=== PATIENT | female | born 1960 | race Caucasian/White ===

== ENCOUNTER 2019-04-12 15:12 | Outpatient (CLI) | payer OTHER ==
--- NOTE | 2019-04-12 16:13 | MMO ---
Bilateral MAMMO Bilat Diag [facility]. CLINICAL HISTORY: Patient is 58 years old and is seen for diagnostic exam and palpable abnormality in the right breast. The patient has no family history of breast cancer. The patient has no personal history of cancer. VIEWS: The views performed were: bilateral craniocaudal with tomosynthesis; bilateral mediolateral oblique with tomosynthesis; bilateral mediolateral with tomosynthesis; and bilateral exaggerated craniocaudal. FILMS COMPARED: The present examination has been compared to prior imaging studies performed at [facility] on 07/27/2010, 05/29/2013 and 04/12/2019, and at [facility] on 05/31/2018. This study has been interpreted with the assistance of computer-aided detection. MAMMOGRAM FINDINGS: The breasts are heterogeneously dense, which could obscure a lesion on mammography. There is a solid mass on US at 11:00 not seen on mammo. In the left breast, there are no suspicious masses, calcifications or areas of architectural distortion. IMPRESSION: FINDING IN THE RIGHT BREAST IS SUSPICIOUS. AN ULTRASOUND-GUIDED BREAST BIOPSY IS RECOMMENDED. THE RESULTS OF THIS EXAM WERE SENT TO THE PATIENT. ACR BI-RADS Category 4 - Suspicious abnormality - biopsy should be considered MAMMOGRAPHY NOTE: 1. A negative mammogram report should not delay a biopsy if a dominant of clinically suspicious mass is present. 2. Approximately 10% to 15% of breast cancers are not detected by mammography. 3. Adenosis and dense breasts may obscure an underlying neoplasm. Reported by: LELE FRANK MD Electonically Signed: [id number]
--- NOTE | 2019-04-12 16:17 | ULT ---
RIGHT BREAST ULTRASOUND: 04/12/19 HISTORY: Palpable mass right breast at 11 o'clock position. FINDINGS: Correlation is made with mammogram of same date. Sonographic evaluation of region of palpable concern at the 11 o'clock position 6 cm from the nipple demonstrates a well circumscribed nonshadowing solid mass measuring 2 x 0.5 x 1 cm. IMPRESSION: BI-RADS 4: Suspicious Abnormality - Biopsy Should Be Considered Usually requires biopsy. Ultrasound guided biopsy is recommended. Discussed in person with the patient at 4:10 p.m.
== END 2019-04-12 15:13 | disposition home or self-care (01) ==
LOC: BICMAMMO 15:12
PROVIDERS: ATTEND Obstetrics & Gynecology
DX: N63.10 Unspecified lump in the right breast, unspecified quadrant (principal)
CPT/HCPCS: 77066; G0279

== ENCOUNTER → 2019-04-13 | Day surgery (SDC) | payer OTHER ==
--- NOTE | 2019-04-13 14:03 | MMO ---
Right Breast MAMMO Unilat Diag [facility]. CLINICAL HISTORY: Patient is 58 years old and is seen for diagnostic exam. The patient has no family history of breast cancer. The patient has no personal history of cancer. The patient has a history of right Ultrasound Guided Core Biopsy in April,. VIEWS: The views performed were: right craniocaudal and right mediolateral oblique. FILMS COMPARED: The present examination has been compared to prior imaging studies performed at [facility] on 05/29/2013 and 04/12/2019, and at [facility] on 05/31/2018. This study has been interpreted with the assistance of computer-aided detection. MAMMOGRAM FINDINGS: There is a biopsy clip seen in the upper-outer region of the right breast. The biopsy clip is more medially located than the localization marker seen on the screening mammogram on 04/12 2019, but biopsy clip was placed adjacent to the visualized mass right breast seen on ultrasound. IMPRESSION: BIOPSY CLIP IN THE RIGHT BREAST IS CONFIRMED UTILIZING POST PROCEDURE MAMMOGRAM. THE RESULTS OF THIS EXAM WERE SENT TO THE PATIENT. MAMMOGRAPHY NOTE: 1. A negative mammogram report should not delay a biopsy if a dominant of clinically suspicious mass is present. 2. Approximately 10% to 15% of breast cancers are not detected by mammography. 3. Adenosis and dense breasts may obscure an underlying neoplasm. Reported by: LINDY WELLS MD Electonically Signed: [id number]
--- NOTE | 2019-04-13 14:22 | ULT ---
EXAM: US Breast Bx US Guided Ultrasound-guided right breast biopsy marker clip placement PROVIDED CLINICAL HISTORY: Palpable abnormality right breast. Ultrasound examination on 04/12/2019 demonstrates a hypoechoic mass at the 11:00 position right breast. COMPARISON: Right breast ultrasound on 04/12/2019 TECHNIQUE: The procedure including the risks and complications were explained to the patient, and informed conse nt was obtained. The patient was placed on the sonography table in the supine position. Mass in the right breast at 11:00 position was again localized. The area was meticulously prepped and draped in t he usual sterile fashion. Skin and subcutaneous tissues were infiltrated with buffered 1% lidocaine for local anesthesia at the intended puncture site. Utilizing concurrent real time ultrasound guidanc e, a total of four 14-gauge core needle biopsy specimens were obtained. After biopsies were obtained, a biopsy marker clip was deployed again utilizing ultrasound guidance. Hemostasis was achieved with direct pressure, and a dry sterile dressing was placed. The patient tole rated the procedure well and without immediate complication. Patient was transported to mammography to obtained in a right breast mammogram post biopsy marker clip placement. IMPRESSION: 1. Technically successful ultrasound-guided biopsy of right breast mass. 2. Technically successful biopsy marker clip placement at site of biopsy adjacent to the right breast mass. 3. Postbiopsy mammograms were obtained and compared to prior mammograms on 04/12/2019. Biopsy marker cl ip is located in the upper breast but is located more medial than the palpable marker seen on the CC projection obtained on 04/12/2019. However, the biopsy marker clip was placed adjacent to the sonogr aphically visualized mass.
== END ==
LOC: BICULT 12:45
PROVIDERS: ATTEND Obstetrics & Gynecology
PROC: 0H9T3ZX Drainage of Right Breast, Percutaneous Approach, Diagnostic (ICD-10-PCS; principal; 2019-04-13)
DX: N60.81 Other benign mammary dysplasias of right breast (principal); Z88.1 Allergy status to other antibiotic agents
CPT/HCPCS: 19083; 88305

== ENCOUNTER 2021-02-08 14:35 | Inpatient (IN) | payer SELFPAY ==
[2021-02-08 15:09] LABS: #Lymphocytes 0.4 thou/uL (1.20-3.40); #Monocytes 0.6 thou/uL (0.11-0.59); #Neutrophils 9.4 thou/uL (1.40-6.50); %Basophils 0.1 % (0.0-1.0); %Eosinophils 0.2 % (0.0-10.0); %Lymphocytes 3.4 % (21.0-51.0); %Monocytes 5.3 % (0.0-10.0); Hemoglobin 13.5 g/dL (12.0-16.0); Mean Corpuscular HGB CONC 34.5 g/dL (32.0-36.0); Mean Corpuscular Hemoglobin 35.4 pg (27.0-31.0); Mean Platelet Volume 6.5 fL (7.4-10.4); Platelet Count 297 thou/uL (130-400); RBC Distribution Width 10.9 % (11.5-14.5); Red Blood Cell (RBC) Count 3.82 mill/uL (4.20-5.40); White Blood Cell (WBC) Count 10.4 thou/uL (4.8-10.8)
[2021-02-08 15:20] LABS: INR-International Normal Ratio 1.1; PTT 25.9 sec (22.9-36.1); Prothrombin Time 13.8 sec (12.0-14.7)
[2021-02-08] MEDS ORDERED: Morphine 4 MG/ML VIAL ONE (15:27)
[2021-02-08] MEDS ORDERED: Ondansetron PF 4 MG/2 ML Vial ONE (15:27)
[2021-02-08 15:29] LABS: Acetaminophen Less than 6.0 mcg/mL (10.0-30.0); Alcohol Less than 10 mg/dL (Less than 10); CK (CPK) 256 U/L (29-168); Salicylate Less than 8.0 mg/dL (15.0-30.0)
[2021-02-08 15:31] LABS: ALT (SGPT) 22 U/L (8-55); AST (SGOT) 33 U/L (5-34); Albumin 4.3 g/dL (3.5-5.0); Alkaline Phosphatase 65 U/L (40-110); Anion Gap 12 mmol/L (10-20); BUN (Urea Nitrogen) 11 mg/dL (9.8-20.1); Bilirubin, Total 0.7 mg/dL (0.2-1.2); Calc. Creatinine Clearance 0 mL/min (70-130); Calcium 9.2 mg/dL (7.8-10.44); Carbon Dioxide 25 mmol/L (22-29); Chloride 106 mmol/L (98-107); Globulin 2.4 g/dL (2.4-3.5); Glucose 99 mg/dL (70-105); Lipase 12 U/L (8-78); Magnesium 1.9 mg/dL (1.6-2.6); Potassium 3.6 mmol/L (3.5-5.1); Protein, Total 6.7 g/dL (6.0-8.3); Sodium 139 mmol/L (136-145)
[2021-02-08] MEDS ORDERED: Heparin 10,000 UNITS/ 10 ML VIAL ONE (15:59)
[2021-02-08] MEDS ORDERED: Aspirin Chewable 81 MG TAB ONE (15:59)
[2021-02-08] MEDS ORDERED: Heparin 25,000 units/D5W 500 ML ONE (16:00)
[2021-02-08 16:01] LABS: CKMB 6.6 ng/mL (0-6.6)
[2021-02-08] MEDS ORDERED: levETIRAcetam in NS 1,500 MG in Premix Bag 1 BAG IVPB SCH (16:30)
[2021-02-08] MEDS ORDERED: Ondansetron ODT 4 MG TAB PO PRN (16:40)
[2021-02-08] MEDS ORDERED: Heparin 10,000 UNITS/ 10 ML VIAL SLOW IVP SCH (17:00)
[2021-02-08] MEDS ORDERED: Heparin 25,000 units/D5W 500 ML IVPB SCH (17:00)
[2021-02-08 17:22] LABS: Amphetamine Not Detected (NotDetected); Barbiturates Screen Not Detected (NotDetected); Benzodiazepine Screen Detected (NotDetected); Cocaine Metabolite Screen Not Detected (NotDetected); Methadone Not Detected (NotDetected); Methamphetamine Not Detected (NotDetected); Opiate Screen Detected (NotDetected); Oxycodone Screen Not Detected (NotDetected); Phencyclidine (PCP) Not Detected (NotDetected); THC/Cannabinoid Screen Detected (NotDetected); Tricyclic Screen Detected (NotDetected)
[2021-02-08 17:33] LABS: Bilirubin Negative (Negative); Blood, Urine Negative (Negative); Clarity Turbid (Clear); Glucose, Urine (Dipstick) 200 mg/dL (Negative); Ketone, Urine 40 mg/dL (Negative); Leukocyte Negative Leu/uL (Negative); Mucous/LPF Rare LPF (<2+); Nitrite Negative (Negative); Protein, Urine (Dipstick) 30 mg/dL (Neg-Trace); RBC/HPF 0-3 HPF (0-3); Urobilinogen Normal mg/dL (Less than 2); pH, Urine 5.5 (5.0-9.0)
[2021-02-08 17:36] LABS: Hemoglobin 12.7 g/dL (12.0-16.0); Platelet Count 283 thou/uL (130-400)
[2021-02-08 17:40] LABS: Bacteria/HPF 3+ HPF (None Seen)
[2021-02-08 18:20] LABS: Troponin I 1.079 ng/mL (< 0.028)
[2021-02-08 18:32] LABS: SARS-CoV-2 NAA Rapid Test Not Detected (NotDetected)
[2021-02-08 20:53] VITALS: BMI 20.3
[2021-02-08] MEDS: Acetaminophen 325 MG TAB PO PRN (21:45)
[2021-02-08] MEDS: Famotidine 20 MG TAB PO SCH (21:46)
[2021-02-08 22:17] LABS: Troponin I 1.289 ng/mL (< 0.028)
[2021-02-08] MEDS ORDERED: Metoclopramide HCl 10 MG/2 ML VIAL IVP SCH (23:15)
[2021-02-08] MEDS ORDERED: Estradiol 1 MG TAB PO SCH (23:59)
[2021-02-08] MEDS ORDERED: Progesterone,Micronized 100 MG CAP PO SCH (23:59)
[2021-02-09 01:38] LABS: Troponin I 1.303 ng/mL (< 0.028)
[2021-02-09] MEDS: Acetaminophen 325 MG TAB PO PRN ×2 (04:03→08:16)
[2021-02-09] MEDS: Levothyroxine 150 MCG TAB PO SCH (05:51)
[2021-02-09] MEDS ORDERED: Aspirin/APAP/Caffeine Tab (Excedrin Migraine) PO PRN (08:09)
[2021-02-09] MEDS ORDERED: Lorazepam 0.5 MG TAB PO SCH (08:15)
[2021-02-09] MEDS: FLUoxetine HCl 20 MG CAP PO SCH (08:16)
[2021-02-09] MEDS ORDERED: Progesterone,Micronized 100 MG CAP PO SCH ×2 (09:00→21:00)
[2021-02-09] MEDS ORDERED: Estradiol 1 MG TAB PO SCH ×2 (09:00→21:00)
[2021-02-09] MEDS ORDERED: FLU VACC QS2021-22(6MOS UP)/PF 60 MCG/0.5 ML SYRINGE IM ONE (09:00)
[2021-02-09] MEDS: Famotidine 20 MG TAB PO SCH ×2 (09:14→21:11)
[2021-02-09 10:05] LABS: Anion Gap 13 mmol/L (10-20); BUN (Urea Nitrogen) 6 mg/dL (9.8-20.1); Calc. Creatinine Clearance 76 mL/min (70-130); Calcium 8.6 mg/dL (7.8-10.44); Carbon Dioxide 24 mmol/L (22-29); Chloride 107 mmol/L (98-107); Glucose 97 mg/dL (70-105); Potassium 3.5 mmol/L (3.5-5.1); Sodium 140 mmol/L (136-145)
[2021-02-09 10:06] LABS: Critical Call Chem Troponin I RESULT DECREASING
[2021-02-09 10:40] LABS: CKMB 13.3 ng/mL (0-6.6)
[2021-02-09] MEDS ORDERED: levETIRAcetam in NS 1,000 MG in Premix Bag 1 BAG IVPB SCH (12:45)
[2021-02-09] MEDS ORDERED: Lorazepam 2 MG/ML VIAL SLOW IVP PRN (12:46)
[2021-02-09] MEDS: Metoclopramide HCl 10 MG/2 ML VIAL IVP PRN ×2 (16:29→21:18)
[2021-02-09] MEDS: diphenhydrAMINE 25 MG in Sodium Chloride 0.9% 50 ML IVPB PRN ×2 (16:29→21:27)
[2021-02-09] MEDS ORDERED: levETIRAcetam 500 MG TAB PO SCH (21:00)
[2021-02-09] MEDS: levETIRAcetam 500 mg/5 ml Oral Solution PO SCH (21:27)
[2021-02-10 05:53] LABS: Cardiac Risk 2.6 (Less than 4.5)
[2021-02-10] MEDS: Levothyroxine 150 MCG TAB PO SCH (06:11)
[2021-02-10] MEDS: FLUoxetine HCl 20 MG CAP PO SCH (11:27)
[2021-02-10] MEDS ORDERED: Lorazepam 0.5 MG TAB PO SCH (11:45)
[2021-02-10] MEDS ORDERED: ADENOSINE 60 MG/20 ML VIAL ONE (12:18)
[2021-02-10] MEDS: levETIRAcetam 500 mg/5 ml Oral Solution PO SCH ×2 (13:05→20:21)
[2021-02-10] MEDS: Famotidine 20 MG TAB PO SCH ×2 (17:21→20:25)
[2021-02-10 17:36] LABS: Hemoglobin 13.2 g/dL (12.0-16.0); Platelet Count 271 thou/uL (130-400)
[2021-02-10] MEDS ORDERED: Enoxaparin Sodium 40 MG/0.4 ML SYRINGE SC SCH (21:00)
[2021-02-11] MEDS: Levothyroxine 150 MCG TAB PO SCH (05:27)
[2021-02-11] MEDS: levETIRAcetam 500 mg/5 ml Oral Solution PO SCH (09:56)
[2021-02-11] MEDS: Famotidine 20 MG TAB PO SCH ×2 (09:57→10:02)
[2021-02-11] MEDS: FLUoxetine HCl 20 MG CAP PO SCH (09:57)
[2021-02-11 14:46] VITALS: BP 121/57; TEMP 98.4
== END 2021-02-11 13:25 | disposition home or self-care (01) | DRG 100 ==
LOC: ERS 14:35 → 2NO 16:13
PROVIDERS: ADMIT Family Medicine; ATTEND Family Medicine
DX: G40.909 Epilepsy, unspecified, not intractable, without status epilepticus (principal); I21.A1 Myocardial infarction type 2; Z20.822 Contact with and (suspected) exposure to COVID-19; F41.9 Anxiety disorder, unspecified; F32.A Depression, unspecified; G89.29 Other chronic pain; E03.9 Hypothyroidism, unspecified; G93.89 Other specified disorders of brain; G44.40 Drug-induced headache, not elsewhere classified, not intractable; T39.95XA Adverse effect of unspecified nonopioid analgesic, antipyretic and antirheumatic, initial encounter; Z79.890 Hormone replacement therapy; Z79.899 Other long term (current) drug therapy; Z98.890 Other specified postprocedural states; Z87.74 Personal history of (corrected) congenital malformations of heart and circulatory system
CPT/HCPCS: 36415; 70450; 70551; 71045; 78452; 80048; 80053; 80061; 80306; 80307; 81003; 81015; 82550; 82553; 83690; 83735; 84146; 84439; 84443; 84484; 85014; 85018; 85025; 85049; 85610; 85730; 93005; 93017; 93306; 95712; 95819; 95957; A9500; J0153; J1200; J1642; J1644; J1953; J2270; J2405; J2765; Q0162; U0002

== ENCOUNTER 2024-01-20 19:41 | Emergency (ER) | payer OTHER, SELFPAY ==
[2024-01-20] MEDS ORDERED: Bacitracin 1 PK ONE ×2 (22:12→22:15)
[2024-01-20] MEDS ORDERED: Lidocaine 1% PF 5 ML VIAL ONE (22:19)
== END 2024-01-20 22:52 | disposition home or self-care (01) ==
LOC: ERS 19:41
DX: S61.451A Open bite of right hand, initial encounter (principal); S61.212A Laceration without foreign body of right middle finger without damage to nail, initial encounter; S61.411A Laceration without foreign body of right hand, initial encounter; S51.832A Puncture wound without foreign body of left forearm, initial encounter; W54.0XXA Bitten by dog, initial encounter
CPT/HCPCS: 12001; 99283